=== PATIENT | female | born 1990 | race Two or more races ===

== ENCOUNTER → 2025-05-28 | Emergency (ER) | payer OTHER ==
[~2025-05-28] VITALS: Ht 142.2 cm; Wt 59.0 kg
[~2025-05-28] MED LIST: 0.9 % SODIUM CHLORIDE 1,000 ML IV SCH; FAMOTIDINE/PF 20 MG in 0.9 % SODIUM CHLORIDE 8 ML IV PUSH STA; ONDANSETRON HCL 2 MG/ML VIAL IV ONE; ONDANSETRON ODT8 MG PO; PEPCID AC20 MG PO
[2025-05-28 18:01] LABS: BASO % 0.3 % (0.1-1.2); HEMATOCRIT 39.2 % (34.1-44.9); HEMOGLOBIN 12.7 g/dL (11.2-15.7); LYMPH # 1.34 (1.18-3.74); LYMPH % 8.3 % (19.3-53.1); MEAN CORPUSCULAR HEMOGLOBIN 26.1 pg (25.6-32.2); MONO # 0.63 (0.24-0.82); MONO % 3.9 % (4.7-12.5); NEUT # 14.13 (1.56-6.13); NEUT % 86.9 % (34.0-71.1); PLATELET COUNT 563 K/uL (163-369); RED BLOOD COUNT 4.86 M/uL (3.93-5.22); RED CELL DISTRIBUTION WIDTH 14.2 % (11.6-14.4)
[2025-05-28 18:19] LABS: ALBUMIN 4.6 gm/dL (3.4-5.0); BILIRUBIN TOTAL 0.42 mg/dL (0.3-1.2); CALCIUM 10.7 mg/dL (8.5-10.1); GFR 64.25; GLOBULINA 4.3 G/DL (2.4-3.5); POTASSIUM 3.85 mEq/L (3.5-5.1); TOTAL PROTEIN 8.9 gm/dL (6.4-8.2)
== END | disposition home or self-care (01) ==
LOC: ER 15:28
PROVIDERS: General Practice
DX: K29.70 Gastritis, unspecified, without bleeding (principal)